=== PATIENT | male | born 1970 | race Two or more races ===

== ENCOUNTER 2017-03-10 00:25 | Emergency (ER) | payer SELFPAY ==
[~2017-03-10] VITALS: Ht 185.4 cm; Wt 78.0 kg
--- NOTE | 2017-03-10 00:25 | NUR ---
TO BED 4 BIB PARAMEDICS C/O EPIGASTRIC PAIN X2 HRS. PT AAOX4 NO ACUTE DISTRESS NOTED, RESP EVEN AND UNLABORED. PENDING ER MDE DONALD.
--- NOTE | 2017-03-10 00:28 | NUR ---
ER MD AT BEDSIDE TO EVAL PT WITH ORDERS RECEIVED. WILL CARRY OUT ORDERS.
[2017-03-10] MEDS ORDERED: LIDOCAINE VISCOUS 2% UD 15 ML UDC ONE (00:39)
[2017-03-10] MEDS ORDERED: MAG HYDROX/AL HYDROX/SIMETH 30 ML UDC ONE (00:39)
--- NOTE | 2017-03-10 00:54 | NUR ---
NOTED PT VOMITING. ER MD YEE AWARE.
[2017-03-10] MEDS ORDERED: ONDANSETRON HCL/PF 4 MG/2 ML VIAL ONE (00:56)
[2017-03-10] MEDS ORDERED: MORPHINE SULFATE INJ 2 MG/ML DISP.SYRIN ONE ×2 (00:56→01:27)
[2017-03-10] MEDS ORDERED: LIDOCAINE VISCOUS 2% UD 15 ML UDC MM ONE (01:00)
[2017-03-10] MEDS ORDERED: ONDANSETRON HCL/PF 4 MG/2 ML VIAL IM ONE (01:00)
[2017-03-10] MEDS ORDERED: MAG HYDROX/AL HYDROX/SIMETH 30 ML UDC PO ONE (01:00)
[2017-03-10] MEDS ORDERED: MORPHINE SULFATE INJ 2 MG/ML DISP.SYRIN IM ONE ×2 (01:00→01:30)
--- NOTE | 2017-03-10 01:00 | NUR ---
PT MEDICATED ORDERED.
--- NOTE | 2017-03-10 01:23 | NUR ---
pt still c/o abdominal pain 01/11. er md aware with orders recieved. will carry out orders.
--- NOTE | 2017-03-10 02:31 | NUR ---
Patient discharged to home in stable condition. Written and verbal after care instructions given. Patient verbalizes understanding of instruction. ambulatory with a steady gait. advice pt not to drive or operate any machinery due to pt was given narcotic medicine. pt verbalize understanding.
[2017-03-10 02:32] VITALS: BP 137/73
== END 2017-03-10 02:34 | disposition home or self-care (01) ==
LOC: ER 00:28
DX: K29.70 Gastritis, unspecified, without bleeding (principal); Z88.0 Allergy status to penicillin
CPT/HCPCS: 93005; 96372 ×3; 99284; A4606; J2270 ×2; J2405; Z7610